=== PATIENT | male | born 1985 | race Two or more races ===

== ENCOUNTER 2025-01-30 12:23 | Outpatient (AMB) | payer OTHER, SELFPAY ==
--- OUTSIDE RECORDS SUMMARY | 2024-10-18 06:07 | XMS_ITS | Continuity of Care Document ---
Author Organization [facility] Address [address] [address] Phone Care Team Providers Care Personal Care Assistant Name Role Phone Other, Medical Personnel Unavailable Unavail able Allergies, Adverse Reactions, Alerts Substance Reaction Status Criticality No Known Allergies Active No Inform ation Medications Medication Instructions Dosage Effective Dates (start - stop) Status Comments No Drug Therapy Prescribed Procedures Procedure Date MED LIST DOCD IN [facility] RVW MEDS BY RX/DR IN [facility] ESTABLISHED OFFICE/OUTPATIENT VISIT MED LIST DOCD IN [facility] RVW MEDS BY RX/DR IN [facility] TB Eval Pt scrn tbco and id as user PT-FOCUSED HLTH RISK ASSMT PREV VISIT, EST, AGE 18-39 RVW MEDS BY RX/DR IN [facility] MED LIST DOCD IN [facility] TB Eval Pt scrn tbco and id as user DIAST BP < 80 MM HG Scrning perf and negative PT-FOCUSED HLTH RISK ASSMT ESTABLISHED OFFICE/OUTPATIENT VISIT Collection of venous blood by venipunctu re Miscellaneous ADVNC CARE PLAN TLK DOCD ACP DISCUSS/DSCN MKR DOCD Alcohol/Drug Screening MED LIST DOCD IN [facility] PT-FOCUSED HLTH RISK ASSCT ESTABLISHED OFFICE/OUTPATIENT VISIT Pt scrn tbco and [...] Diagnoses Date Provider Providers Copied on Encounter [facility], [address] [place] [address], [id number], tel:[phone] Program Offices No Information 5 Other Medical Personnel. . ESTABLISHED OFFICE/OUTPA TIENT VISIT [facility], [address] [place] [address], [id number], tel:[phone] [facility] Medicine Lab review/TH. (chief complaint) Mild hyperlipidemia 5 Vinicio Clifford. [address] [place] [address], [id number], [place]. tel:[phone] PREV VISIT, EST, AGE 18-39 [facility], [address] [place] [address], [id number], tel:[phone] [facility] Lab results (chief complaint) Encounter for screening for other disorderEncounte r for screening, unspecifiedUnpro tected sexual intercourse 5 Zaid Waldron. [address] [place], [place], [id number], [place]. tel:[phone] ESTABLISHED OFFICE/OUTPA TIENT VISIT [facility], [address] [place] [address], [id number], [place] tel:[phone] [facility] [place] lab request (chief complaint) Encounter for screening for other disorderBody mass index (BMI) 28.0-28.9, adultRoutine screening for STI (sexually transmitted infection)Routin e lab drawPositive screening for depression on 9-item Patient Health Questionnaire (PHQ-9)Screening for other specified disorderEncounte r for screening, unspecified 5 Freedman DO Merlene. [address] [place] [address], [id number]. tel:[phone] [facility], [address] [place] [address], [id number], tel:[phone] [facility] Main No Information 5 [facility] . ESTABLISHED OFFICE/OUTPA TIENT VISIT [facility], [address] [place] [address], [id number], [place] tel:[phone] [facility] [employer] std screening. (chief complaint) Tobacco useScreen for STD (sexually transmitted disease)Screenin g for hyperlipidemia 3 Corbin Fry. [address], [place], [id number], [place]. tel:[phone] [facility], [address] [place] [address], [id number], [place] tel:[phone] [facility] [place] Positive Chlamydia PCR 9 Aditi Colvin. [address] [place] [address], [id number], [place]. tel:[phone] [facility], [address] [place] [address], [id number], [place] tel:[phone] [facility] [place] No Information 9 Other Medical Personnel. . ESTABLISHED OFFICE/OUTPA TIENT VISIT [facility], [address] [place] [address], [id number], [place] tel:[phone] [facility] [place] f/u Dog Bite (chief complaint) Cellulitis, upper arm 9 No Information NEW OFFICE/OUTPA TIENT VISIT [facility], [address] [place] [address], [id number], tel:[phone] [facility] [place] Dog bite (chief complaint) Dog bite, initial encounterScreen for STD (sexually transmitted disease)Cellulit is, upper armPain, unspecified 8- 9 No Information [facility], [address] [place] [address], [id number], tel:[phone] [facility] Main No Information 8 Other Medical Personnel. . Family History Family Member Type Diagnosis Age At Onset No Information Immunizations Vaccine Date Status Comments Tdap (Boostrix) administered Note: Verifi ed by Dr. Yarbrough. ; Source: New Immunization Record Payers Payer name Insurance type Covered alliance party ID Joselyn oconnell(s) [facility] MediCal Managed Care [id number] MediCal Differential Rate [id number] Social History Type Description Quantity Date Captured Comments Alcohol Use Details Unknown Caffeine Use Details Unknown Tobacco Use Status Smoking Status No Information Sex Male Sexual Orientation Straight or heterosexual Gender Identity Male Chief Complaint And Reason For Visit No Information Reason For Referral Reason For Referral No Information Plan Of Treatment Date Type Action Status Goal Hepatitis C screening due Goal HIV Screen due Goal Tobacco screening. Due on due Goal ACEs due Goal Lipid panel (17 to 76 years). Due on due Goal BMI Adult Follow-Up. Due on due Goal Diabetes screeni ng- HgbA1C. Due on due Goal Depression scree rosy. Due on due Goal BMI. Due on due Goal Well Visit (Adult). Due on A due Goal PRAPARE . Due on due Goal Diabetes screeni ng- HgbA1C. Due on due Goal Hepatitis C screening due Goal Lipid panel (17 to 76 years). Due on due Goal HIV Screen due Goal BMI Adult Follow-Up. Due on due Goal Depression scree rosy. Due on due Goal BMI. Due on due Goal ACEs due Goal SHA (>=18 years). Due on Aug due Goal Tobacco screening. Due on due Goal SHA (>=18 years). Due on Aug due Goal HIV Screen due Goal BMI Adult Follow-Up. Due on due Goal Depression scree rosy. Due on due Goal ACEs due Goal Tobacco screening. Due on due Goal BMI. Due on due Goal Lipid panel (17 to 76 years). Due on due Goal Hepatitis C screening due Goal Diabetes screeni ng- HgbA1C. Due on due Goal Tobacco cessation counseling [...] completed Goal Tobacco cessation sounseling completed Goal Tobacco cessation counseling completed Goal Lifestyle education regardin g diet completed Goal Lifestyle education regardin g diet completed Future Order: Lab Order CBC With Differential/Platelet ([id number]), Appointment on: , Collected on: , Sent on: Sent Future Order: Lab Order Lipid Pa sha ([id number]), Appointment on: , Collected on: , Sent on: Sent Future Order: Lab Order Comp. Me tabolic Panel (14) ([id number]), Appointment on: , Collected on: , Sent on: Sent Future Order: Lab Order Hgb A1c with eAG Estimation ([id number]), Appointment on: , Collected on: , Sent on: Sent Future Order: Lab Order HIV 1/0/ 2 Ag/Ab with Reflex ([id number]), Appointment on: , Collected on: , Sent on: Sent Future Order: Lab Order RPR, Rfx Qn RPR/Confirm TP-PA ([id number]), Appointment on: , Collected on: , Sent on: Sent Future Order: Lab Order Chlamydi a/GC Amplification ([id number]), Appointment on: , Collected on: , Sent [...] telehealth visit as audio-only, and theclinician (location: [facility]) determined this service to be clinically appropriate [...] visit as audio-only, and the clinician (location: [facility]) determined this service to be clinically appropriate [...] dog was on a leash with its' truckload owner operator. He did not report incident to the [...] discharge instructions. Related to Unprotected sexual intercourse Recommend a diet low in fatty/fried foods and higher in lean protein, fruits, and vegetablesRecommend approximately 150 minutes of moderate intensity exercise weekly. Related to Routine lab draw STI screeningAbstain from sex until results reviewed [...] Routine screening for STI (sexually transmitted infection) Giving encouragement to exercise Related to Body [...] Verbalizes Understanding. Related to Cellulitis, upper arm Giving encouragement [...]
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
[2025-01-30 12:28] VITALS: BP 128/76; PULSE 86; TEMP 36.9; O2SAT 97; BMI 27.2
== END 2025-01-30 14:32 | disposition home or self-care (01) ==
PROVIDERS: PCP Internal Medicine; Visit Provider Physician Assistant Medical
DX: M79.5 Residual foreign body in soft tissue (principal)

== ENCOUNTER 2025-01-30 12:23 | Outpatient (REF) | payer OTHER, SELFPAY ==
--- NOTE | ~2025-01-30 | XR_ITS ---
EXAMINATION: XR THORACIC SPINE CLINICAL INFORMATION: M79.5 - Residual foreign body in soft tissue COMPARISON: None available. TECHNIQUE: 2 views of the thoracic spine were obtained. FINDINGS: There is a metallic foreign body situated in the region of the lower thoracic spine visible only on the lateral view. Posteriorly, has a rounded appearance, anterior, it is J-shaped is not clearly seen on the frontal projection. Second Metallic foreign body is present in the subcutaneous soft tissues dorsal to the mid to upper thoracic spine. No adjacent micrometallic fragments are identified. Foreign body measures approximately 12 x 16 mm. It is somewhat conical in shape with a domed cephalad margin and injected somewhat flattened caudal margin. Vertebral body height and alignment is preserved. Disc spaces are preserved. There are no degenerative changes or other abnormalities. XR/XR thoracic spine 2V IMPRESSION: There are 2 metallic foreign bodies. One projects in the region of the cervical spine on the lateral and is not clearly seen on the frontal x-ray. The other projects posterior to T3-4. Unremarkable thoracic spine. Electronically signed by: Mariano Ca MD 01/30/2025 01:39 PM EDT
== END 2025-01-30 12:24 | disposition home or self-care (01) ==
LOC: HO.HMGCX 12:23
PROVIDERS: PCP Internal Medicine; Visit Provider Physician Assistant Medical
DX: M54.6 Pain in thoracic spine (principal); M79.5 Residual foreign body in soft tissue
CPT/HCPCS: 72070; 99212

== ENCOUNTER → 2025-01-30 13:08 | Outpatient (BNV) | payer OTHER, SELFPAY | PROVIDERS: PCP Internal Medicine; Visit Provider Radiology Diagnostic Radiology | DX: Z18.10 Retained metal fragments, unspecified (principal) | CPT/HCPCS: 72070 ==

== ENCOUNTER 2025-04-04 08:41 | Outpatient (AMB) | payer OTHER, SELFPAY ==
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
[2025-04-04 08:52] VITALS: BP 117/70; PULSE 88; BMI 26.9
== END 2025-04-04 09:10 | disposition home or self-care (01) ==
LOC: HO.HGS 08:42
PROVIDERS: PCP Internal Medicine; Visit Provider Surgery
DX: M79.5 Residual foreign body in soft tissue (principal)
CPT/HCPCS: 99203

== ENCOUNTER → 2025-04-04 08:41 | Outpatient (BNVA) | payer OTHER, SELFPAY | PROVIDERS: PCP Internal Medicine; Visit Provider Surgery | DX: M79.5 Residual foreign body in soft tissue (principal) | CPT/HCPCS: 99202 ==

== ENCOUNTER 2025-04-17 15:29 | Outpatient (AMB) | payer OTHER, SELFPAY ==
--- OUTSIDE RECORDS SUMMARY | 2024-10-18 06:07 | XMS_ITS | Continuity of Care Document ---
Author Organization [facility] Address [address] [place] [address] Phone Care Team Providers Care Pallet Assembler Name Role Phone Other, Medical Personnel Unavailable Unavail able Allergies, Adverse Reactions, Alerts Substance Reaction Status Criticality No Known Allergies Active No Inform ation Medications Medication Instructions Dosage Effective Dates (start - stop) Status Comments No Drug Therapy Prescribed Procedures Procedure Date MED LIST DOCD IN [facility] RVW MEDS BY RX/DR IN [facility] ESTABLISHED OFFICE/OUTPATIENT VISIT MED LIST DOCD IN [facility] RVW MEDS BY RX/DR IN [facility] TB Eval Pt scrn tbco and id as user PT-FOCUSED HLTH RISK ASSMT PREV VISIT, EST, AGE 18-39 RVW MEDS BY RX/DR IN [facility] MED LIST DOCD IN [facility] TB Eval Pt scrn tbco and id as user DIAST BP < 80 MM HG Scrning perf and negative PT-FOCUSED HLTH RISK ASSMT ESTABLISHED OFFICE/OUTPATIENT VISIT Collection of venous blood by venipunctu re Miscellaneous ADVNC CARE PLAN TLK DOCD ACP DISCUSS/DSCN MKR DOCD Alcohol/Drug Screening MED LIST DOCD IN [facility] PT-FOCUSED HLTH RISK ASSNJ ESTABLISHED OFFICE/OUTPATIENT VISIT Pt scrn tbco and id as user HIV-1/HIV-2, SINGLE ASSAY TB Eval PT-FOCUSED HLTH RISK ASSMT ESTABLISHED OFFICE/OUTPATIENT VISIT NEW OFFICE/OUTPATIENT VISIT IMMUNIZATION ADMIN I TDAP VACCINE >7 IM FP INITIAL COUNSELING 10 MINUTES VISIT F FP COUNSELING 15 MINUTES VISIT 08 S CONDOMS Advance Directives Directive Yes / No Effective Date File Name No Information Encounters Encounter Description Practice Location Reason(s) For Visit Diagnoses Date Provider Providers Copied on Encounter [facility], [address] [place] [address], [id number], tel:[phone] Program Offices No Information 5 Other Medical Personnel. . ESTABLISHED OFFICE/OUTPA TIENT VISIT [facility], [address] [place] [address], [id number], tel:[phone] [facility] Lab review/TH. (chief complaint) Mild hyperlipidemia 5 Vinicio Clifford. [address] [place] [address], [id number], [place]. tel:[phone] PREV VISIT, EST, AGE 18-39 [facility], [address] [place] [address], [id number], tel:[phone] [facility] Lab results (chief complaint) Encounter for screening for other disorderEncounte r for screening, unspecifiedUnpro tected sexual intercourse 5 Zaid Waldron. [address] [place], [place], [id number], [place]. tel:[phone] ESTABLISHED OFFICE/OUTPA TIENT VISIT [facility], [address] [place] [address], [id number], [place] tel:[phone] [facility] [place] lab request (chief complaint) Encounter for screening for other disorderBody mass index (BMI) 28.0-28.9, adultRoutine screening for STI (sexually transmitted infection)Routin e lab drawPositive screening for depression on 9-item Patient Health Questionnaire (PHQ-9)Screening for other specified disorderEncounte r for screening, unspecified 5 Freedman DO Merlene. [address] [place] [address], [id number]. tel:[phone] [facility], [address] [place] [address], [id number], tel:[phone] [facility] Main No Information 5 [facility] . ESTABLISHED OFFICE/OUTPA TIENT VISIT [facility], [address] [place] [address], [id number], [place] tel:[phone] [facility] std screening. (chief complaint) Tobacco useScreen for STD (sexually transmitted disease)Screenin g for hyperlipidemia 3 Corbin Fry. [address], [place], [id number], [place]. tel:[phone] [facility], [address] [place] [address], [id number], [place] tel:[phone] [facility] [place] Positive Chlamydia PCR 9 Aditi Colvin. [address] [place] [address], [id number], [place]. tel:[phone] [facility], [address] [place] [address], [id number], [place] tel:[phone] [facility] [place] No Information 9 Other Medical Personnel. . ESTABLISHED OFFICE/OUTPA TIENT VISIT [facility], [address] [place] [address], [id number], [place] tel:[phone] [facility] [place] f/u Dog Bite (chief complaint) Cellulitis, upper arm 9 No Information NEW OFFICE/OUTPA TIENT VISIT [facility], [address] [place] [address], [id number], tel:[phone] [facility] [place] Dog bite (chief complaint) Dog bite, initial encounterScreen for STD (sexually transmitted disease)Cellulit is, upper armPain, unspecified 8- 9 No Information [facility], [address] [place] [address], [id number], tel:[phone] [facility] Main No Information 8 Other Medical Personnel. . Family History Family Member Type Diagnosis Age At Onset No Information Immunizations Vaccine Date Status Comments Tdap (Boostrix) administered Note: Verifi ed by Dr. Yarbrough. ; Source: New Immunization Record Payers Payer name Insurance type Covered constitution party ID Lexia anish(s) [facility] MediCal Managed Care [id number] MediCal Differential Rate [id number] Social History Type Description Quantity Date Captured Comments Alcohol Use Details Unknown Caffeine Use Details Unknown Tobacco Use Status Smoking Status No Information Sex Male Sexual Orientation Straight or heterosexual Gender Identity Male Chief Complaint And Reason For Visit No Information Reason For Referral Reason For Referral No Information Plan Of Treatment Date Type Action Status Goal Tobacco screening. Due on due Goal ACEs due Goal Lipid panel (17 to 76 years). Due on due Goal BMI Adult Follow-Up. Due on due Goal Diabetes screeni ng- HgbA1C. Due on due Goal Depression scree rosy. Due on due Goal BMI. Due on due Goal Well Visit (Adult). Due on A due Goal PRAPARE . Due on due Goal Hepatitis C screening due Goal HIV Screen due Goal Diabetes screeni ng- HgbA1C. Due on due Goal Hepatitis C screening due Goal Lipid panel (17 to 76 years). Due on due Goal HIV Screen due Goal BMI Adult Follow-Up. Due on due Goal Tobacco screening. Due on due Goal SHA (>=18 years). Due on Aug due Goal Depression scree rosy. Due on due Goal BMI. Due on due Goal ACEs due Goal BMI. Due on due Goal Lipid panel (17 to 76 years). Due on due Goal Hepatitis C screening due Goal Diabetes screeni ng- HgbA1C. Due on due Goal SHA (>=18 years). Due on Aug due Goal HIV Screen due Goal BMI Adult Follow-Up. Due on due Goal Depression scree rosy. Due on due Goal ACEs due Goal Tobacco screening. Due on due Goal Tobacco cessation counseling completed Goal Depression scree rosy. Due on due Goal Tobacco screening. Due on due Goal HIV Screen due Goal SHA (>=18 years). Due on Aug due Goal BMI Adult Follow-Up. Due on due Goal Hepatitis C screening due Goal ACEs due Goal BMI. Due on due Goal Tobacco cessation counseling completed Goal Tobacco cessation sounseling completed Goal Lifestyle education regardin g diet completed Goal Tobacco cessation counseling completed Goal Lifestyle education regardin g diet completed Future Order: Lab Order Comp. Me tabolic Panel (14) ([id number]), Appointment on: , Collected on: , Sent on: Sent Future Order: Lab Order Lipid Pa sha ([id number]), Appointment on: , Collected on: , Sent on: Sent Future Order: Lab Order CBC With Differential/Platelet ([id number]), Appointment on: , Collected on: , Sent on: Sent Future Order: Lab Order Hgb A1c with eAG Estimation ([id number]), Appointment on: , Collected on: , Sent on: Sent Future Order: Lab Order Chlamydi a/GC Amplification ([id number]), Appointment on: , Collected on: , Sent on: Sent Future Order: Lab Order RPR, Rfx Qn RPR/Confirm TP-PA ([id number]), Appointment on: , Collected on: , Sent on: Sent Future Order: Lab Order HIV 1/0/ 2 Ag/Ab with Reflex ([id number]), Appointment on: , Collected on: , Sent on: Sent History Of Present Illness Encounter Date Complaint History Of Prese nt Illness Lab review/TH. Patient presents for lab review.No additional complaints. ROS: A complete Review of Systems is negative except as stated here. Chart is reviewed.no f/cno cp/sobno dys/hematurno n/v/c/d/abd painno ent sxsno headache or acute vis changesno other sxs This visit was conducted via telehealth audio-only due to patient's preference. It was done using a HIPAA compliantplatform. The patient (location: home) verbally consented to this telehealth visit as audio-only, and theclinician (location: [facility]) determined this service to be clinically appropriate to be delivered remotely. Aphysical exam will be completed at a later time if warranted. Lab results A 39 y/o M pt he re for lab results Junie Garcia This visit was conducted via telehealth audio-only due to patient's preference. It was done using a HIPAA compliant platform. The patient (location: home) verbally consented to this telehealth visit as audio-only, and the clinician (location: [facility]) determined this service to be clinically appropriate to be delivered remotely. A physical exam will be completed at a later time if warranted. lab request 39-year-old male presents today requesting STI testing and routine blood workNot currently sexually active but last sexual intercourse was approximately 3 to 4 months agoExclusively with female partnersDoes not consistently use condomsDoes have history of STI in the pastWould also like blood work to check for cholesterol and diabetesNo reported symptoms today std screening. #patient request ing routine labs and std screening. no std symptoms. doesn't use protection all the time. female partners. #tobacco use-1 pack every 2-3 days. not interested in quitting at this time. This visit was conducted via telehealth: audio and video. It was done so using a HIPAAcompliant platform. The patient has verbally consented to this remote encounter, and theclinician determined this service to be clinically appropriate to be delivered remotely. Aphysical exam will be completed at a later time if warranted. Due to technical difficulties the visit was conducted via audio alone. The patient verbally consented to an audio only visit. f/u Dog Bite The symptoms beg an 2 weeks ago. Was not able to get the Augmentin due to problems with insurance. Never took Augmentin. RTC 3 days after TB screen and was told he needed to repeat in 2 weeks. Labs reviewed. CX positive for Staph. Wound dry, scabbing and oozing sang pus. Dog bite The symptoms beg an 5 days ago. The symptoms are reported as being moderate. The symptoms occur daily. The location is left arm. He states the symptoms are acute. 33 y/o M is a new patient who presents for a dog bite on his left arm. Incident occurred 5 days ago. The dog was on a leash with its' j2ee developer. He did not report incident to the police. He is unaware if dog was vaccinated. Recent relapse and using methamphetamines, injecting. Currently homeless but plans on returning to a treatment facility. Requesting STD screening and PPD today. Functional Status Date Functional Assessmen t No Information Medications Administered Medication Instructions Dosage Effective Dates (start - stop) Status Comments No Drug Therapy Prescribed Instructions Date Instruction Additional Infor los Pt. to initiate diet /lifestyle changes as discussed and advised to maintain a low-fat, low-cholesterol diet. Pt. to RTC in 6 months for lipid labs/recheck. Pt. verbalized an understanding of the plan. Related to Mild hyperlipidemia Pt had labs done 08/12no results receivedWill ask MA to call lab and provide pt update of lab resultspt reports no symptomsreports unproductive intercourse counseled on safe sexual practices abstain from sex until results received will call with results or may get results through patient portal All medical record entries made by the nathalia were done at my direction, which I personally reviewed. Additionally, I have reviewed the chart and agree the record accurately reflects my personal performance of the history, physical exam, assessment and plan, and discharge instructions. Related to Unprotected sexual intercourse STI screeningAbstain from sex until results reviewed and are negative or until at least 7 days after you and partner(s) are treated for a positive resultDiscussed safe sex practices including condoms to prevent transmission of STIs in the futureConsider PrEP for prevention of transmission of HIVEncourage talking with your partners about sexual healthFollow up pending results or as needed Treatment plan, including OTC and prescribed meds if applicable, were discussed including risks/benefits/side effects. The patient verbalized understanding and agreement to the plan. Related to Routine screening for STI (sexually transmitted infection) Recommend a diet low in fatty/fried foods and higher in lean protein, fruits, and vegetablesRecommend approximately 150 minutes of moderate intensity exercise weekly. Related to Routine lab draw Giving encouragement to exercise Related to Body mass index [BMI] 28.0-28.9, adult Dietary needs education Related to Body mass index [BMI] 28.0-28.9, adult Bactrim as directed. Take and finish all of the medication.Wash wound with soap and water. Apply Mupirocin twice daily and cover with sterile dressing. RTC as needed.RTC for TB screenSTD screen NEG Plan of Care discussed. Agrees. All medications reviewed. Risks and Benefits reviewed. Verbalizes Understanding. Related to Cellulitis, upper arm Lifestyle education regarding di et Related to Body mass index (BMI) 25.0-25.9, adult Giving encouragement to exercise Related to Body mass index (BMI) 25.0-25.9, adult Culture sentWound dr Peacock vaccineToradol 60 mg IMContact Public Health regarding rabies vaccineAugmentin x 10 daysIbuprofen as needed for painPPD placed todayFollow up Wednesday morning for wound check and PPD reading Related to Cellulitis, upper arm Giving encouragement to exercise Related to Body mass index (BMI) 25.0-25.9, adult Lifestyle education regarding di et Related to Body mass index (BMI) 25.0-25.9, adult Assessments Type Assessment Date No Information Patient Care Teams Name Effective Dates (start - stop) Status Members No Information
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
[2025-04-17 15:40] VITALS: BP 134/76; PULSE 93; RESP 18; TEMP 36.7; O2SAT 97; BMI 27.4
== END 2025-04-17 16:23 | disposition home or self-care (01) ==
LOC: HO.HMCH 15:30
PROVIDERS: PCP Internal Medicine; Visit Provider Internal Medicine
DX: Z00.00 Encounter for general adult medical examination without abnormal findings (principal); M79.5 Residual foreign body in soft tissue; N62 Hypertrophy of breast; Z23 Encounter for immunization

== ENCOUNTER → 2025-04-17 15:29 | Outpatient (BNVA) | payer OTHER, SELFPAY | PROVIDERS: PCP Internal Medicine; Visit Provider Internal Medicine | DX: Z00.00 Encounter for general adult medical examination without abnormal findings (principal); M79.5 Residual foreign body in soft tissue; N62 Hypertrophy of breast; Z23 Encounter for immunization | CPT/HCPCS: 90471; 90715; 93005; 99212; 99385 ==

== ENCOUNTER 2025-04-18 09:22 | Outpatient (REF) | payer OTHER, SELFPAY ==
[2025-04-18 09:42] LABS: MANUAL DIFF FLAG NO
[2025-04-18 09:48] LABS: Hematocrit 47.5 % (42.0-52.0); Hemoglobin 16.5 g/dl (14.0-18.0); Imm Gran Abs Auto 0.01 X10*3/uL (0.00-0.03); Imm Gran Pct Auto 0.2 % (0.0-0.4); Lymphocytes Absolute Auto 1.4 X10*3/uL (1.2-4.9); Mean Corpuscular HGB Conc 34.7 g/dl (31.0-36.0); Mean Corpuscular Hemoglobin 30.4 pg (27.0-33.0); Mean Corpuscular Volume 87.6 fL (80.0-98.0); NRBC Abs Auto 0.000 X10*3/uL (0.0-0.012); NRBC Pct Auto 0.0 /100WBC (0.0-0.2); Platelet Count 262 X10*3/uL (160-400); Red Blood Count 5.42 X10*6/uL (4.60-5.80); White Blood Count 5.9 X10*3/uL (4.8-10.8)
[2025-04-18 09:55] LABS: Hemoglobin A1C 148.3767 umol/L
[2025-04-18 10:21] LABS: Alanine Aminotransferase 30 U/L (0-40); Albumin Level 4.8 g/dL (3.5-5.0); Alkaline Phosphatase 48 U/L (39-117); Anion Gap 9 (12-20); Aspartate Amino Transferase 29 U/L (5-37); Blood Urea Nitrogen 15 mg/dL (9-16); Calcium 9.4 mg/dL (8.4-10.2); Carbon Dioxide 29 mmol/L (22-29); Chloride 105 mmol/L (96-108); Cholesterol 192 mg/dL (<200); Estimated Glomerular Filt Rate > 60; HDL Cholesterol 59 mg/dL (>40); Potassium 4.4 mmol/L (3.3-5.1); Sodium 139 mmol/L (135-145); Total Protein 7.2 g/dL (6.5-8.0); Triglycerides 63 mg/dL (<150)
[2025-04-18 10:47] LABS: HBS Num1 367.53 mIU/mL (0-7.99); HBc Num1 0.05 S/CO (0.00-0.79); HBsAGNum1 0.33 S/CO (0.00-0.99); HIV Num 1 0.07 S/CO (0.00-0.99); Hepatitis B Surface Antigen Negative (Negative); ~HepC Num1 0.09 S/CO (0.00-0.79); ~Hepatitis B Surface Antibody REACTIVE (Nonreactive); ~Hepatitis C Antibody Nonreactive (Nonreactive)
== END 2025-04-18 09:23 | disposition home or self-care (01) ==
LOC: HO.LAB 09:22
PROVIDERS: PCP Internal Medicine; Visit Provider Internal Medicine
DX: Z00.00 Encounter for general adult medical examination without abnormal findings (principal); Z11.59 Encounter for screening for other viral diseases; Z11.4 Encounter for screening for human immunodeficiency virus [HIV]
CPT/HCPCS: 36415; 80053; 80061; 83036; 85025; 86704; 86706; 86803; 87340; 87389

== ENCOUNTER 2025-05-08 11:18 | Day surgery (SDC) | payer OTHER, SELFPAY ==
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
[2025-05-04 14:15] VITALS: BMI 27.4
[2025-05-08] VITALS (7 sets, daily range): BP systolic 110–124; BP diastolic 63–76; PULSE 57–74; RESP 12–19; TEMP 36.5–36.9; O2SAT 98–100
[2025-05-08] MEDS: Lactated Ringers 1,000 ML 100 ML IVCONT (11:47)
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
== END 2025-05-08 15:33 | disposition home or self-care (01) ==
PROVIDERS: PCP Internal Medicine; Visit Provider Surgery
PROC: (CPT 10121; principal; 2025-05-08 13:30)
DX: M79.5 Residual foreign body in soft tissue (principal); Z18.10 Retained metal fragments, unspecified; Z87.828 Personal history of other (healed) physical injury and trauma; N62 Hypertrophy of breast
CPT/HCPCS: 10121; J0690; J2003; J2250; J2704; J2795; J3010

== ENCOUNTER → 2025-05-08 11:18 | Outpatient (BNV) | payer OTHER, SELFPAY | PROVIDERS: PCP Internal Medicine; Visit Provider Surgery | DX: M79.5 Residual foreign body in soft tissue (principal) | CPT/HCPCS: 10120 ==

== ENCOUNTER 2025-05-21 10:59 | Outpatient (AMB) | payer OTHER, SELFPAY ==
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
[2025-05-21 11:15] VITALS: BP 120/66; PULSE 64
== END 2025-05-21 11:38 | disposition home or self-care (01) ==
LOC: HO.HGS 10:59
PROVIDERS: PCP Internal Medicine; Visit Provider Physician Assistant Surgical
DX: Z87.821 Personal history of retained foreign body fully removed (principal)
CPT/HCPCS: 99024

== ENCOUNTER → 2025-05-21 10:59 | Outpatient (BNVA) | payer OTHER, SELFPAY | PROVIDERS: PCP Internal Medicine; Visit Provider Physician Assistant Surgical | DX: Z48.02 Encounter for removal of sutures (principal); Z87.821 Personal history of retained foreign body fully removed | CPT/HCPCS: 99212 ==